=== PATIENT | female | born 1965 | race Caucasian/White ===

== ENCOUNTER → 2020-01-20 | Outpatient (CLI) | payer OTHER ==
[~2020-01-20] MED LIST: CLONAZEPAM; CLONAZEPAM PO; CYMBALTA30 MG PO; IMODIUM A-D1 MG/5 ML; LOPERAMIDE 2 MG2 M1 PO; MAALOX525 MG/15 PO; MOM PO; NEURONTIN 300300 M1 PO; SEROQUEL PO; SEROQUEL400 MG PO; VISTARIL; VISTARIL 25 MG25 M1 PO
== END ==
LOC: SJCVC 14:48
DX: I10 Essential (primary) hypertension (principal); F31.70 Bipolar disorder, currently in remission, most recent episode unspecified; Z79.899 Other long term (current) drug therapy

== ENCOUNTER → 2020-07-20 | Outpatient (CLI) | payer OTHER | LOC: SJCVCIMAG 11:29 | PROVIDERS: ATTEND Internal Medicine | DX: I08.8 Other rheumatic multiple valve diseases (principal); M94.0 Chondrocostal junction syndrome [Tietze]; E78.5 Hyperlipidemia, unspecified; Z79.899 Other long term (current) drug therapy; Z86.711 Personal history of pulmonary embolism; Z87.891 Personal history of nicotine dependence ==